=== PATIENT | male | born 1995 | race Two or more races ===

== ENCOUNTER 2017-04-09 22:15 | Emergency (ER) | payer OTHER ==
[2017-04-09 22:23] VITALS: RESP 16; TEMP 98.4
--- NOTE | 2017-04-09 22:27 | EDPHY ---
H & P Stated Complaint: pulled door open too quickly hitting forehead - lac above L eye Time Seen by Provider: 04/09/17 22:27 HPI/ROS: HPI: Is a 21-year-old male who presents with Chief Complaint: pulled door open too quickly hitting forehead - lac above L eye Location: forehead Quality: Laceration Duration: Prior to arrival Signs and Symptoms: No bleeding, no radiation, no numbness, no weakness, no tingling, no incontinence, no decreased range of motion, no swelling, no pain Timing: Acute Severity: Mild Context: Patient was trying to open up his car door when the wind caught in slammed in directly into the forehead between the eyes. He notes some mild bleeding applied direct pressure and stop. He then noticed that he had a cut to his forehead in between his eyes and wanted further evaluation for suture requirement. Denies LOC/head injury/neck pain/dizziness/nausea/vomiting/ amnesia. Ambulatory at the scene. Drove himself to the emergency room. Reports tetanus up-to-date. Modifying Factors: direct pressure Comment: ROS: see HPI Constitutional: No fever, no chills, no weight loss Eyes: No blurred vision Respiratory: No shortness of breath, no cough Cardiovascular: No chest pain Gastrointestinal: No nausea, no vomiting no diarrhea Genitourinary: No dysuria Extremities: No myalgias Neurologic: No weakness, no numbness Skin: No rashes Hematologic: No bruising, no bleeding MEDICAL/SURGICAL/SOCIAL HISTORY: Medical history: anemia. Surgical history: Denies Social history: student. family history noncontributory. CONSTITUTIONAL: WD/WN young adult male, awake and alert, no obvious distress HEENT: superficial 1.0 cm vertical laceration between the eyes; no active bleeding and normocephalic. NECK: supple, no midline tenderness, flexion 45 degrees, extension 45 degrees, right and left lateral flexion 45 degrees. No meningismus. Cardiovascular: Normal S1/S2, regular rate, regular rhythm, without murmur rub or gallop. PULMONARY/CHEST: Symmetrical and nontender. no crepitus. Clear to auscultation bilaterally. Good air movement. No accessory muscle usage. ABDOMEN: Soft, nondistended, nontender, no ecchymosis. PELVIC: no pain with rocking; bilateral hips flexion 125 degrees, extension 30 degrees, with no pain internal rotation and no pain external rotation. BACK: No midline tenderness, no paraspinous spasm, deep tendon reflexes 2/2, no pain with straight leg raise EXTREMITIES: 2/2 pulses, strength 5/5, DIP/PIP/MCP flexion/extension intact with good light touch sensation. no deformities, no clubbing, no cyanosis or edema. NEUROLOGICAL: no focal neuro deficits. GCS 15. Light touch sensation intact. SKIN: Warm and dry, no erythema. no rash. Good capillary refill. Source: Patient Exam Limitations: No limitations - Personal History Current Tetanus Diphtheria and Acellular Pertussis (TDAP): Yes - Medical/Surgical History Hx Asthma: No Hx Chronic Respiratory Disease: No Hx Diabetes: No Hx Cardiac Disease: No Hx Renal Disease: No Hx Cirrhosis: No Hx Alcoholism: No Hx HIV/AIDS: No Hx Splenectomy or Spleen Trauma: No Other PMH: anemia - Social History Smoking Status: Never smoked Constitutional: Initial Vital Signs Temperature (C) 36.9 C 04/09/17 22:19 Heart Rate 92 04/09/17 22:19 Respiratory Rate 16 04/09/17 22:19 Blood Pressure 112/64 04/09/17 22:19 O2 Sat (%) 94 04/09/17 22:19 O2 Delivery Mode Room Air Allergies/Adverse Reactions: No Known Allergies Allergy (Verified 04/09/17 22:23) Home Medications: Medication Instructions Recorded NK [No Known Home Meds] 11/12/14 Medical Decision Making Procedures: Procedure: Laceration repair. Verbal consent was obtained from the patient. The superficial 1.0 cm vertical laceration between the eyes was NOT anesthetized in the usual fashion. The wound was irrigated, draped and explored to its base with a gloved finger. There were no deep structures involved. No tendon injury was identified. The wound was repaired with Dermabond. Good hemostasis was achieved. The procedure was performed by myself. ED Course/Re-evaluation: No neurological deficits. Tetanus up-to-date. No signs of neurovascular compromise/tenting of skin/compartment syndrome/ extremities and joints examined above and below area of concern and are neurovascularly intact. Laceration repaired with Dermabond. Wound care instructions provided. This patient was seen under the supervision of my secondary supervising physician. I evaluated care for this patient independently. Differential Diagnosis: Head injury including but not limited to concussion, skull fracture, intraparenchymal contusion, subarachnoid, subdural and epidural hematoma. Departure - Departure Disposition: Home, Routine, Self-Care Clinical Impression: Superficial laceration of face Condition: Good Instructions: Skin Adhesive Care (ED), Facial Laceration (ED) Additional Instructions: Keep the laceration/skin glue dry for 48 hours. After 48 hours, you may remove the dressing; wash the site daily with mild soap and water; then pat dry. Take Tylenol 650 mg every 4 hours and/or Ibuprofen 600 mg every 8 hours with food as needed for pain. Allow the Dermabond/skin glue to fall off on its own. Do not pick at it. Return to the ER immediately if you have progressive headaches, neurologic deficits, gait abnormality, visual disturbance, slurred speech, or any other symptom that concerns you. Referrals: [facility],. [Clinic] - As per Instructions
[2017-04-09] MEDS ORDERED: SKIN ADHESIVE (DERMABOND) 1 EACH TP ONE (22:47)
[2017-04-09 23:11] VITALS: BP 112/69; PULSE 64; O2SAT 98
== END 2017-04-09 23:11 | disposition home or self-care (01) ==
PROC: 0HQ1XZZ Repair Face Skin, External Approach (ICD-10-PCS; principal; 2017-04-09)
DX: S01.81XA Laceration without foreign body of other part of head, initial encounter (principal); W22.8XXA Striking against or struck by other objects, initial encounter

== ENCOUNTER 2017-12-14 18:36 | Emergency (ER) | payer OTHER ==
--- NOTE | 2017-12-14 18:57 | EDPHY ---
H & P Stated Complaint: L heel pain Time Seen by Provider: 12/14/17 18:57 HPI/ROS: HPI CHIEF COMPLAINT: Left heel pain. HISTORY OF PRESENT ILLNESS: 22-year-old male, otherwise healthy no significant medical history presents emergency room with left heel pain. Patient states about 8-9 months ago he was in [place] he stepped on sea urchin, and developed spine in the left heel. He was able to give most of this out. However he thinks he may have left a retained spine in his heel. He has been dealing with for the past 8-9 months however he started snowboarding and noticed some increasing pain to his left heel. He thinks there may be still a foreign body or spine sea urchin stuck in his heel. Decided come the emergency room due to increasing pain. Pain is located posterior left heel. Only has pain when he puts pressure on this area. Past Medical History: No medical history Past Surgical History: No surgical history Social History: Denies drugs alcohol tobacco. [employer] student. Family History: Noncontributory. ROS REVIEW OF SYSTEMS: 10 Systems were reviewed and negative with the exception of the elements mentioned in the history of present illness. Exam Constitutional nontoxic triage nursing summary reviewed, vital signs reviewed, awake/alert. Eyes normal conjunctivae and sclera, EOMI, PERRLA. HENT normal inspection, atraumatic, moist mucus membranes, no epistaxis, neck supple/ no meningismus, no raccoon eyes. Respiratory clear to auscultation bilaterally, normal breath sounds, no respiratory distress, no wheezing. Cardiovascular rate normal, regular rhythm, no murmur, no edema, distal pulses normal. Gastrointestinal soft, non-tender, no rebound, no guarding, normal bowel sounds, no distension, no pulsatile mass. Genitourinary no CVA tenderness. Musculoskeletal left foot: Neurovascular intact good distal pulse, good cap refill, if the posterior aspect of the middle the heel: Pin sized hole. No evidence of infection. No pus, no drainage, no redness. Does have some mild tenderness when I press there. no midline vertebral tenderness, full range of motion, no calf swelling, no tenderness of extremities, no meningismus, good pulses, neurovascularly intact. Skin pink, warm, & dry, no rash, skin atraumatic. Neurologic awake, alert and oriented x 3, AAOx3, moves all 4 extremities equally, motor intact, sensory intact, CN II-XII intact, normal cerebellar, normal vision, normal speech. Psychiatric normal mood/affect. Heme/Lymph/Immune no lymphadenopathy. Differential Diagnosis: Includes but is not limited to in a particular order heel foreign body, soft tissue injury, infection Medical Decision Making: Plan for this patient x-ray of the left heel to rule out fracture foreign body. Re-evaluation: Explain the patient will need to follow up with Podiatry. Patient's x-ray reviewed this shows a calcaneal fracture. Unclear when the patient did this. Patient be splinted posterior short-leg. Crutches. Patient understands to be nonweightbearing until he can follow up with Podiatry. No foreign body visualized on the x-ray. Calcaneal fracture. Patient splinted in a posterior short leg neurovascular intact. Crutches provided. Source: Patient - Personal History Current Tetanus/Diphtheria Vaccine: Yes Current Tetanus Diphtheria and Acellular Pertussis (TDAP): Yes - Medical/Surgical History Hx Asthma: No Hx Chronic Respiratory Disease: No Hx Diabetes: No Hx Cardiac Disease: No Hx Renal Disease: No Hx Cirrhosis: No Hx Alcoholism: No Hx HIV/AIDS: No Hx Splenectomy or Spleen Trauma: No Other PMH: anemia - Social History Smoking Status: Never smoked Constitutional: Initial Vital Signs Temperature (C) 36.4 C 12/14/17 18:48 Heart Rate 63 12/14/17 18:48 Respiratory Rate 16 12/14/17 18:48 Blood Pressure 107/70 12/14/17 18:48 O2 Sat (%) 96 12/14/17 18:48 O2 Delivery Mode Room Air Allergies/Adverse Reactions: No Known Allergies Allergy (Verified 12/14/17 18:48) Home Medications: Medication Instructions Recorded NK [No Known Home Meds] 11/12/14 Medical Decision Making - Diagnostics Imaging Results: Imaging Impressions Calcaneus X-Ray 12/14/17 19:01 Impression: 1. Linear nondisplaced fracture through the posterior aspect of left calcaneus. Departure - Departure Disposition: Home, Routine, Self-Care Clinical Impression: Heel pain Qualifiers: Laterality: left Qualified Code(s): M79.672 - Pain in left foot Avulsion fracture of calcaneus Qualifiers: Encounter type: initial encounter Calcaneus location: tuberosity Fracture type : closed Fracture alignment: nondisplaced Laterality: left Qualified Code(s): S92.035A - Nondisplaced avulsion fracture of tuberosity of left calcaneus, initial encounter for closed fracture Condition: Good Instructions: Calcaneal Fracture (ED) Additional Instructions: 1. Please follow up with the foot doctor 2. Return to the ER for worsening symptoms. 3. Do not bear weight on her left foot. 4. Crutches. 5. Splint. 6. Follow up with the foot doctor. Referrals: NONE *PRIMARY CARE P,. [Primary Care Provider] - As per Instructions Jose Moreau MD [Doctor of Podiatric Medicine] - As per Instructions
[2017-12-14 21:30] VITALS: BP 130/80
== END 2017-12-14 21:36 | disposition home or self-care (01) ==
PROC: 2W3RX1Z Immobilization of Left Lower Leg using Splint (ICD-10-PCS; principal; 2017-12-14)
DX: S92.035A Nondisplaced avulsion fracture of tuberosity of left calcaneus, initial encounter for closed fracture (principal); X58.XXXA Exposure to other specified factors, initial encounter; Y93.23 Activity, snow (alpine) (downhill) skiing, snowboarding, sledding, tobogganing and snow tubing